=== PATIENT | male | born 1990 | race African-American/Black ===

== ENCOUNTER 2017-06-21 17:16 | Emergency (ER) | payer OTHER ==
[~2017-06-21] VITALS: Ht 180.3 cm; Wt 113.4 kg
[~2017-06-21 17:16] MED LIST: AMOXICILLIN875 MG PO; IBUPROFEN 800800 M1 PO; KEFLEX500 MG PO; NOHOMEMEDICATIONS; ONDANSETRON HCL4 M2 PO; TRAMADOL 50 MG50 MG PO; TRIAMCINOLONE A80 G2 TOP; ZOFRAN ODT4 MG PO; ZOFRAN4 MG PO
[2017-06-21 18:47] VITALS: BP 150/87
== END 2017-06-21 18:48 | disposition home or self-care (01) ==
LOC: M.ERS 17:16
DX: M25.461 Effusion, right knee (principal)